=== PATIENT | male | born 1945 | race Asian ===

== ENCOUNTER 2022-12-27 08:16 | Emergency (ER) | payer MEDICAID, OTHER ==
[~2022-12-27] VITALS: Ht 165.1 cm; Wt 81.8 kg
[2022-12-27 08:42] VITALS: BP 165/80; PULSE 76; RESP 18; TEMP 97.6; O2SAT 95
[2022-12-27] MEDS ORDERED: ACET-1080 PO (08:49)
[2022-12-27] MEDS ORDERED: CEPH500C PO (08:49)
== END 2022-12-27 08:59 | disposition home or self-care (01) ==
LOC: ER 08:16
DX: D22.39 Melanocytic nevi of other parts of face (principal); I10 Essential (primary) hypertension